=== PATIENT | male | born 1940 | race Caucasian/White ===

== ENCOUNTER 2018-01-25 17:44 | Observation (INO) | payer MEDICARE, BC ==
[~2018-01-25] VITALS: Ht 190.5 cm; Wt 106.6 kg
--- NOTE | ~2018-01-25 | HEMODYNAMI ---
PATIENT:MATY CARLOS MEDICAL RECORD: [id number] : 44 LOCATION:[address] ADMISSION DATE: 01/25/18 Generatedon:01/26/201815:13 Patient name: MATY CARLOS Patient #: [id number] SSN: DO B: 1940 Date of study: 01/26/2018 Page: Of Hemodynamic Procedure Report Patient Data Patient Demographics Procedure consent was obtained First Name: MATY Gender: Male Last Name: BREANNA : 1940 Middle Initial: T Age: 77 year(s) Patient #: [id number] Race: Unknown Additional ID: [id number] Contact details [address]: [address] [place] [address] State: [place] City: [place] Zip code: [address] Admission Admission Data Admission Date: 01/25/2018 Admission Time: 22:34 Room #: 2124 Procedure Procedure Types Cath Procedure Diagnostic Procedure LHC LHC w/Coronaries Sedation Charges Moderate Sedation up to 15 minutes Procedure Description Procedure Date Procedure Date: 01/26/2018 Procedure Start Time: 14:47 Procedure End Time: 15:09 Procedure Staff Name Function Elena Majano RT Scrub Steff Ceja RT Monitor Azeem Hi RN Nurse Tomasz Mendoza MD Performing Physician Procedure Data Cath Procedure Fluoroscopy Diagnostic fluoroscopy Total fluoroscopy Time: 5.3 time: 5.3 min min Diagnostic fluoroscopy Total fluoroscopy dose: dose: 1230 mGy 1230 mGy Contrast Material Contrast Material Type Amount (ml) Isovue 300 114 Entry Location Entry Primary Successful Side Size Upsize Upsize Entry Closure Cho ccessful Closure Location (Fr) 1 (Fr) 2 (Fr) Remarks Device Remarks Radial Right 6 Fr Mechanical tr BAND artery Short Compression Estimated blood loss: 10 ml Diagnostic catheters Device Type Used For End Catheter Placement DIAGNOSTIC Octaviano 110cm Procedure 5Fr catheter ([id number]) DIAGNOSTIC Octaviano 110cm Procedure 5Fr catheter (387692) DIAGNOSTIC [place] 110cm 5 Procedure Fr catheter (052141) Procedure Medications Medication Administration Route Dosage Oxygen etCO2 Nasal cannula 2 l/min Heparin Flush Bag added to field 2 bags (1000units/500ml NS) 0.9% NaCl I.V. 100 ml/hr Radial Cocktail added to field 1 syringe (Verapomil 2mg/Nitro 400mcg/Heparin 1500units) Fentanyl I.V. 50 mcg Versed I.V. 1 mg Fentanyl I.V. 50 mcg Versed I.V. 1 mg Radial Cocktail I.A. 1 syringe (Verapomil 2mg/Nitro 400mcg/Heparin 1500units) Heparin Bolus I.V. 19961 units Brilinta P.O. 180 mg Hemodynamics Rest Heart Rate: 64 (bpm) Pressure Samples Time Site Value (mmHg) Purpose Heart Use Rate(bpm) 14:48 AO 157/17(54) Snapshot 64 Gradients Valve Time Site Site Mean SEP/DFP Peak To Heart Use 1 2 (mmHg) (sec/min) Peak Rate (mmHg) (bpm) Other 14:49 AO 63 Snapshots Pre Cath Intra NCS Post Cath Vital Signs Time Heart Resp SPO2 etCO2 NIBP (mmHg) Rhythm Pain Sedation Rate (ipm) (%) (mmHg) Status Level (bpm) 14:37:01 62 17 99 35.9 170/98(127) NSR 0 (11) 10(A) , No pain 14:41:23 61 17 97 38.9 136/95(113) NSR 0 (11) 10(A) , No pain 14:45:39 64 17 91 38.4 152/73(98) NSR 0 (11) 9(A) , No pain 14:50:01 63 16 89 43.4 117/77(86) NSR 0 (11) 9(A) , No pain 14:54:11 68 16 93 38.7 133/69(117) NSR 0 (11) 9(A) , No pain 14:58:23 62 17 96 38.9 137/79(100) NSR 0 (11) 9(A) , No pain 15:02:41 61 17 97 43.4 130/66(111) NSR 0 (11) 9(A) , No pain 15:06:53 58 16 97 38.9 129/76(104) NSR 0 (11) 9(A) , No pain 15:08:41 62 15 97 38.9 125/74(100) NSR 0 (11) 9(A) , No pain Medications Time Medication Route Dose Verified Delivered Reason Not es Effectiveness by by 14:37:48 Oxygen etCO2 2 l/min Chad Azeem Per physician Nasal [facility] Hi RN cannula 14:37:56 Heparin Flush added 2 bags Chad Gann used for Bag to [facility] Mike Hi RN procedure (1000units/500ml field CANTU NS) 14:38:07 0.9% NaCl I.V. 100 Chad Azeem Per physician ml/hr [facility] Mike Hi RN, MD 14:38:15 Radial Cocktail added 1 Chad Azeem used for (Verapomil to syringe [facility] Hi RN procedure 2mg/Nitro field CANTU 400mcg/Heparin 1500units) 14:38:23 Fentanyl I.V. 50 mcg Chad Gann for sedation [facility] Mike Hi RN, MD 14:38:29 Versed I.V. 1 mg Chad Gann for sedation [facility] Mike Hi RN, MD 14:40:45 Fentanyl I.V. 50 mcg Chad Jeany for sedation [facility] Mike Hi RN, MD 14:40:49 Versed I.V. 1 mg Chad Gann for sedation [facility] Mike Hi RN, MD 14:49:13 Radial Cocktail I.A. 1 Tomasz Tomasz for (Verapomil syringe Reji Mendoza MD vasodilation 2mg/Nitro 400mcg/Heparin 1500units) 15:00:07 Heparin Bolus I.V. 22862 Tomasz Azeem for units Reji Hi RN anticoagulation 15:08:50 Brilinta P.O. 180 mg Tomasz Azeem for Reji Hi RN antiplatelet therapy Procedure Log Time Note 14:10:43 Elena Majano RT(R) sent for patient. Start room use. 14:24:08 Diagnostic Cath Status : Elective 14:24:44 Time tracking: Regular hours (M-F 7:00 - 5:00) 14:24:48 Plan of Care:Hemodynamics will remain stable., Cardiac rhythm will remain stable., Comfort level will be maintained., Respiratory function will remain adequate., Patient/ family verbilizes understanding of procedure., Procedure tolerated without complication., Recovers from procedure without complications.. 14:24:54 Patient received from Med II to [facility] 2 Alert and oriented. Tansferred to table in Supine position. 14:24:55 Warm blankets applied, and mian hugger turned on for patient comfort. 14:24:55 Correct patient and procedure confirmed by team. 14:24:57 Signed procedure consent form obtained from patient. 14:24:58 ECG and BP/O2 sat monitors applied to patient. 14:28:07 Rhythm: sinus rhythm 14:28:09 Full Disclosure recording started 14:28:26 H&P Date Dictated: 01/25/2018 Within 30 days and on chart., H&P Addendum completed by physician on day of procedure. (MUST COMPLETE FOR ALL OUTPATIENTS). 14:28:28 Pre-procedure instructions explained to patient. 14:28:29 Pre-op teaching completed and patient verbalized understanding. 14:28:52 Family in waiting room. 14:28:55 Patient NPO since Midnight. 14:29:06 Is the patient allergic to Iodine/contrast media? No. 14:29:09 Is patient on blood thinner?No 14:29:11 Patient diabetic? No. 14:29:24 Previous problem with sedation/anesthesia? No ? 14:29:27 Snore? Yes 14:29:28 Sleep apnea? No 14:29:29 Deviated septum? No 14:29:29 Opens mouth fully? Yes 14:29:30 Sticks out tongue? Yes 14:29:32 Airway obstruction? No ? 14:29:38 Dentures? Yes IN 14:29:45 Pre procedure: right dorsailis pedis pulse 1+ Palpable, but thready & weak; easily obliterated 14:29:47 Modified Chalo's test Ulnar < 7 seconds 14:29:50 Patient pain scale 0/10 ?. 14:29:56 IV patent on arrival in right hand with 0.9% NaCl at [facility]. 14:30:08 Lab results completed and on chart. 14:30:13 Right Radial & Right Groin area was prepped with chlora-prep and draped in sterile fashion 14:30:14 Alarms reviewed by R. N. 14:30:14 Sharps counted by scrub and verified by R.N. 14:33:26 Vital chart was started 14:35:55 Vital chart was stopped 14:35:56 Vital chart was started 14:37:44 Physician arrived 14:37:45 --------ALL STOP TIME OUT------ 14:37:46 Final Timeout: patient, procedure, and site verified with staff and physician. All members of the team are in agreement. 14:37:48 Oxygen 2 l/min etCO2 Nasal cannula was administered by Azeem Hi RN; Per physician; 14:37:48 Right Radial & Right Groin site verified by team. 14:37:52 Physical assessment completed. ASA score P 2 - A patient with mild systemic disease as per Chad Blank MD. 14:37:56 Heparin Flush Bag (1000units/500ml NS) 2 bags added to field was administered by Azeem Hi RN; used for procedure; 14:37:56 Sedation plan: IV Moderate Sedation Medication:Versed, Fentanyl 14:38:07 0.9% NaCl 100 ml/hr I.V. was administered by Azeem Hi RN; Per physician; 14:38:15 Radial Cocktail (Verapomil 2mg/Nitro 400mcg/Heparin 1500units) 1 syringe added to field was administered by Azeem Hi RN; used for procedure; 14:38:23 Fentanyl 50 mcg I.V. was administered by Azeem Hi RN; for sedation; 14:38:29 Versed 1 mg I.V. was administered by Azeem Hi RN; for sedation; 14:40:45 Fentanyl 50 mcg I.V. was administered by Azeem Hi RN; for sedation; 14:40:49 Versed 1 mg I.V. was administered by Azeem Hi RN; for sedation; 14:44:47 Zero performed for pressure channel P1 14:46:26 A DIAGNOSTIC Octaviano 110cm 5Fr catheter ([id number]) was advanced over the wire and used for Procedure. 14:46:32 Procedure started. 14:46:58 Zero performed for pressure channel P1 14:47:18 Local anesthetic to right radial artery with Lidocaine 2% by Tomasz Mendoza MD.INITIAL ACCESS ONLY 14:47:37 A 6 Fr Short sheath was inserted into the Right Radial artery 14:47:43 Zero performed for pressure channel P1 14:48:07 A DIAGNOSTIC Octaviano 110cm 5Fr catheter ([id number]) was advanced over the wire and used for Procedure. 14:48:42 EF : 40 % 14:48:46 LV hemodynamics recorded. 14:49:13 Radial Cocktail (Verapomil 2mg/Nitro 400mcg/Heparin 1500units) 1 syringe I.A. was administered by Tomasz Mendoza MD; for vasodilation; 14:49:47 RCA angiography performed. 14:50:44 Catheter removed. 14:51:15 A DIAGNOSTIC [place] 110cm 5 Fr catheter (815139) was advanced over the wire and used for Procedure. 14:51:24 LCA angiography performed. 14:54:17 Catheter removed. 14:54:29 Proceeding to intervention. 14:56:20 GUIDE 6FR AR 1.0 catheter ([id number]) opened to sterile field. 14:56:21 BMW 300cm [place] 2 J wire ([id number]) opened to sterile field. 14:56:23 INFLATOR Merit BasixCompak (AJ6741) opened to sterile field. 14:56:33 TUBING High Pressure Extension Tubing (Reji) ([id number]) opened to sterile field. 14:56:47 6 Fr AR 1 guide catheter was inserted over the wire 14:58:21 RCA 15:00:07 Heparin Bolus 80176 units I.V. was administered by Azeem Hi RN; for anticoagulation; 15:00:42 BMW wire advanced. 15:00:50 PDA 15:01:04 Wire advanced across lesion. 15:05:15 Place stent Inflation Number: 1 A INTEGRITY OTW 3.0 X 12 stent ([id number]) was prepped and advanced across the R PDA. The stent was deployed at 16 ALISSA for 0:24 (min:sec). 15:05:20 Wire removed. 15:05:22 Guide catheter removed. 15:06:00 Sheath removed intact; hemostasis achieved with Mechanical Compression to the Right Radial artery. 15:06:05 Procedure ended.(Physican Out) 15:06:16 Fluoroscopy time 05.30 minutes. 15:06:20 Fluoroscopy dose: 1230 mGy 15:06:20 Flurop Dose total: 1230 15:06:27 Contrast amount:Isovue 300 114ml. 15:06:35 TR band inflated with 12cc of air. 15:06:37 Insertion/operative site no bleeding no hematoma. 15:06:38 Post Procedure Pulses reassessed and unchanged 15:06:47 Post-procedure physical assessment completed. ASA score P 2 - A patient with mild systemic disease as per Tomasz Mendoza MD. 15:07:06 Post procedure rhythm: unchanged. 15:07:10 Estimated blood loss: 10 ml 15:07:13 Post procedure instruction explained to patient.Patient verbalizes understanding. 15:07:37 Procedure type changed to Cath procedure, Diagnostic procedure, LHC, LHC w/Coronaries, Sedation Charges, Moderate Sedation up to 15 minutes 15:07:58 Procedure and supply charges have been captured, reviewed, submitted and are correct. 15:08:41 Use device set Femoral Dx 15:08:42 ACIST Syringe (59226) opened to sterile field. 15:08:43 Bag Decanter (2002S) opened to sterile field. 15:08:47 Medline Cath Pack ([id number]) opened to sterile field. 15:08:48 DIAGNOSTIC WIRE .035 260cm J wire (574663) opened to sterile field. 15:08:50 Brilinta 180 mg P.O. was administered by Azeem Hi RN; for antiplatelet therapy; 15:08:50 ACIST Hand Control (26012) opened to sterile field. 15:08:50 ACIST Manifold (19318) opened to sterile field. 15:08:55 PERCUTANEOUS ENTRY 19GA needle opened to sterile field. 15:09:17 TR BAND Standard ([id number]) opened to sterile field. 15:09:31 Report given to Med II. 15:09:35 Patient transfered to Med II with Bed. 15:09:37 Procedure ended. 15:09:37 Full Disclosure recording stopped 15:09:41 End room use (Document Last) 15:12:26 End room use (Document Last) 15:13:05 Vital chart was stopped Intervention Summary Intervention Notes Time ActionType Lesion and Equipment Action# Pressure Duration Attributes Used 15:05:15 Place stent R PDA INTEGRITY 1 16 00:24 OTW 3.0 X 12 stent ([id number]) Device Usage Item Name Manufacture Quantity Catalog Hospital Part Current Minimal Lot# / Number Charge Number Stock Stock Serial# Code DIAGNOSTIC Terumo 2 40-6561 [id number] 578214 378126 5 Octaviano 110cm 5Fr catheter (064070) DIAGNOSTIC Terumo 1 40-7954 209804 383939 617038 5 [place] 110cm 5 Fr catheter (565028) GUIDE 6FR AR Medtronic 1 [id number] 507542 74844 078757 1 1.0 catheter ([id number]) BMW 300cm Acevedo 1 [id number] 453445 542108 887490 5 [place] 2 Vascular J wire ([id number]) INFLATOR Merit 1 [id number] 042770 340682 472651 15 Merit Medical BasixCompak (HJ0480) TUBING High Merit 1 [id number] 447269 20681 256894 10 Pressure Medical Extension Tubing (Mendoza) ([id number]) INTEGRITY Medtronic 1 [id number] 188137 573742 8 [id number] OTW 3.0 X 12 stent ([id number]) ACIST Acist 1 49626 674402 104258 632129 20 Syringe Medical (61025) Systems Inc Bag Decanter Microtek 1 2001S 769637 74420 078076 5 (2001S) Medical Inc. Medline Cath Cardinal 1 [id number] 893488 51354 221918 5 WeLink ([id number]) DIAGNOSTIC [facility] [place] 1 515492 663359 773729 242405 30 WIRE .035 260cm J wire (824004) ACIST Hand Acist 1 52140 820140 553056 416355 5 Control Medical (53524) Systems Inc ACIST Acist 1 49204 529035 622176 180857 5 Manifold Medical (28576) Systems Inc PERCUTANEOUS Cook Medical 1 K49115 017580 187752 5 ENTRY 19GA needle TR BAND Terumo 1 [id number] 943677 241424 046859 40 Standard ([id number]) Signature Audit [place] Stage Time Signature Unsigned Intra-Procedure 01/26/2018 Steff Ceja 3:13:01 PM RT(R) Signatures Monitor : Steff Ceja Signature : RT Date : Time : [facility] [address] [place] [address]
[~2018-01-25 17:44] MED LIST: ASPIRIN EC81 M1 PO; DIOVAN HCT 160/1 TAB PO; EFFIENT10 MG PO; FLUTICASONE PRO16 GM NS; NORVASC5 MG PO; PRAVACHOL40 MG PO; PRILOSEC20 MG PO
[2018-01-25 18:15] LABS: BASOPHILS 0.2 % (0-2); EOSINOPHILS 0.9 % (0-7); HEMATOCRIT 39.5 % (42.0-54.0); HEMOGLOBIN 13.1 g/dL (13.5-17.5); IMMATURE GRANULOCYTES 0.2 % (0-5); MCH 27.7 pg (26.0-34.0); MCHC 33.2 g/dL (31.0-37.0); MCV 83.5 fL (80.0-100.0); MEAN PLATELET VOLUME 10.1 fL (7.4-10.4); MONOCYTES 7.2 % (2-11); NEUTROPHILS 71.5 % (40-80); PLATELET COUNT 286 10x3/uL (130-400); RBC 4.73 10x6/uL (4.20-6.10); RDW 14.1 % (11.5-14.5); WBC 10.9 10x3/uL (4.8-10.8)
[2018-01-25 18:39] LABS: ALBUMIN 3.9 g/dL (3.4-5.0); ALKALINE PHOSPHATASE 91 U/L (46-116); ALT (SGPT) 28 U/L (10-68); BILIRUBIN - TOTAL 0.39 mg/dL (0.2-1.3); CALC OSMOLALITY 278 mosm/kg (275-300); CARBON DIOXIDE 28.2 mmol/L (21.0-32.0); CHLORIDE - SERUM 104 mmol/L (98-107); CREATININE - SERUM 1.1 mg/dL (0.6-1.3); GLUCOSE 113 mg/dL (74-106); POTASSIUM - SERUM 3.9 mmol/L (3.5-5.1); PROTEIN - SERUM 7.6 g/dL (6.4-8.2); SODIUM 138 mmol/L (136-145); UREA NITROGEN 17 mg/dL (7-18); eGFR NON AFRICAN AMERICAN 69 mL/min (90-120)
[2018-01-25 18:50] LABS: CHOL - HDL RATIO 3.2 ratio (2.3-4.9); CHOLESTEROL, TOTAL 139 mg/dL (0-200); CKMB 2.4 U/L (0.0-3.6); CREATINE KINASE 157 UL (21-232); HDL CHOLESTEROL 44 mg/dL (32-96); LDL CHOLESTEROL 87 mg/dL (0-100); TRIGLYCERIDE 43 mg/dL (30-200); TROPONIN-I 0.025 ng/mL (0.000-0.060)
[2018-01-25 19:03] LABS: INR 1.17 (0.85-1.17); PROTIME 14.5 SECONDS (11.6-15.0)
[2018-01-25 19:04] LABS: APTT 27.5 SECONDS (22.8-39.4)
[2018-01-25 19:05] LABS: D-DIMER-QUANTITATIVE 0.4 ug/mLFEU (0.20-0.54)
[2018-01-25 22:06] LABS: CKMB 1.8 U/L (0.0-3.6); CREATINE KINASE 138 UL (21-232); TROPONIN-I 0.032 ng/mL (0.000-0.060)
[2018-01-26 00:03] VITALS: BP 143/49; BMI 33.1
[2018-01-26 04:00] VITALS: BP 107/53
[2018-01-26 05:02] LABS: BASOPHILS 0.3 % (0-2); EOSINOPHILS 2.7 % (0-7); HEMATOCRIT 37.4 % (42.0-54.0); HEMOGLOBIN 12.2 g/dL (13.5-17.5); IMMATURE GRANULOCYTES 0.3 % (0-5); LYMPHOCYTES 28.7 % (15-50); MCH 27.5 pg (26.0-34.0); MCHC 32.6 g/dL (31.0-37.0); MCV 84.2 fL (80.0-100.0); MEAN PLATELET VOLUME 10.5 fL (7.4-10.4); MONOCYTES 10.2 % (2-11); NEUTROPHILS 57.8 % (40-80); PLATELET COUNT 262 10x3/uL (130-400); RBC 4.44 10x6/uL (4.20-6.10); RDW 14.3 % (11.5-14.5); WBC 7.8 10x3/uL (4.8-10.8)
[2018-01-26] MEDS ORDERED: PEPCID20 MG PO (05:13)
[2018-01-26] MEDS ORDERED: ZYRTEC10 MG PO (05:14)
[2018-01-26] MEDS ORDERED: PRAVACHOL20 MG PO (05:16)
[2018-01-26 05:41] LABS: ALBUMIN 3.4 g/dL (3.4-5.0); ALKALINE PHOSPHATASE 82 U/L (46-116); ALT (SGPT) 27 U/L (10-68); CALC OSMOLALITY 288 mosm/kg (275-300); CALCIUM 8.7 mg/dL (8.5-10.1); CARBON DIOXIDE 30.1 mmol/L (21.0-32.0); CHLORIDE - SERUM 108 mmol/L (98-107); CREATINE KINASE 117 UL (21-232); GLUCOSE 107 mg/dL (74-106); POTASSIUM - SERUM 3.9 mmol/L (3.5-5.1); PROTEIN - SERUM 6.7 g/dL (6.4-8.2); SODIUM 144 mmol/L (136-145); TROPONIN-I < 0.017 ng/mL (0.000-0.060); UREA NITROGEN 19 mg/dL (7-18); eGFR NON AFRICAN AMERICAN 77 mL/min (90-120)
[2018-01-26 08:35] VITALS: BP 142/80
[2018-01-26 10:33] LABS: CKMB 1.5 U/L (0.0-3.6); CREATINE KINASE 105 UL (21-232); TROPONIN-I 0.027 ng/mL (0.000-0.060)
[2018-01-26 11:35] VITALS: BP 145/69
[2018-01-26 12:27] VITALS: Ht 190.5 cm; Wt 106.6 kg
[2018-01-26] MEDS ORDERED: BRILINTA90 MG PO (16:17)
== END 2018-01-26 19:56 | disposition home or self-care (01) ==
LOC: D.ER 17:44 → D.M2 22:34 → OBSVTIME 22:34 → D.M2 22:34
PROVIDERS: Emergency Medicine; Family Medicine; Physician Assistant Medical
DX: I25.110 Atherosclerotic heart disease of native coronary artery with unstable angina pectoris (principal); E78.5 Hyperlipidemia, unspecified; I10 Essential (primary) hypertension; I44.7 Left bundle-branch block, unspecified; Q24.5 Malformation of coronary vessels

== ENCOUNTER 2019-05-16 10:03 | Observation (INO) | payer MEDICARE, BC ==
[~2019-05-16] VITALS: Ht 190.5 cm; Wt 104.5 kg
[2019-05-16] VITALS (9 sets, daily range): BP systolic 122–179; BP diastolic 62–81; Ht 190.5 cm; Wt 104.5 kg
--- NOTE | ~2019-05-16 | HEMODYNAMI ---
PATIENT:MATY CARLOS MEDICAL RECORD: [id number] : 44 [address] [place] CLINICT# [id number] ADMISSION DATE: 05/16/19 Generatedon:05/17/201914:23 Patient name: MATY CARLOS Patient #: [id number] SSN: [id number] : 1940 Date of study: 05/17/2019 Page: Of Hemodynamic Procedure Report Patient Data Patient Demographics Procedure consent was obtained First Name: MATY Gender: Male Last Name: BREANNA : 1940 Middle Initial: T Age: 78 year(s) Patient #: [id number] Race: SSN: [id number] Additional ID: [id number] Contact details Address: [address] [place] [address] State: [place] City: [place] Zip code: [address] Past Medical History Allergies Allergen Reaction Date Comments Reported Other allergy 05/17/2019 EFFIENT, PLAVIX Admission Admission Data Admission Date: 05/16/2019 Admission Time: 12:19 Room #: D.2125 Insurance Payor: Medicare [facility] #: [id number] Height (in.): 73 BSA: 2.32 (m2) Height (cm.): 185.42 BMI: 31.4 (kg/m2) Weight (lbs.): 238 Weight (kg.): 107.95 Lab Results Lab Result Date: 05/17/2019 Lab Result Time: 0:00 Biochemistry Name Units Result Min Max BUN mg/dl 18 --(---*)-- 7 18 Creatinine mg/dl 1.1 --(--*-)-- 0.6 1.3 eGFR ml/min 69 *-(----)-- 90 120 NONAFRICAN CBC Name Units Result Min Max Hematocrit % 32.2 *-(----)-- 42 54 Hemoglobin g/dl 10.3 *-(----)-- 13.5 17.5 Procedure Procedure Types Cath Procedure Diagnostic Procedure LHC C w/Coronaries Procedure Description Procedure Date Procedure Date: 05/17/2019 Procedure Start Time: 14:03 Procedure Staff Name Function Tomasz Mendoza MD Performing Physician Allyson Jewell RT Scrub Yonas Juarez RN Nurse Zev Root RT Monitor Tila Parekh RN Housekeeping Staff Indication CAD Angina Procedure Data Cath Procedure Fluoroscopy Diagnostic fluoroscopy Total fluoroscopy Time: 4 time: 4 min min Diagnostic fluoroscopy Total fluoroscopy dose: 748 dose: 748 mGy mGy Contrast Material Contrast Material Type Amount (ml) Isovue 300 73 Entry Location Entry Primary Successful Side Size Upsize Upsize Entry Closure Cho ccessful Closure Location (Fr) 1 (Fr) 2 (Fr) Remarks Device Remarks Radial Right 6 Fr Mechanical artery Short Compression Estimated blood loss: 10 ml Diagnostic catheters Device Type Used For End Catheter Placement DIAGNOSTIC Octaviano 110cm Procedure 5Fr catheter ([id number]) DIAGNOSTIC [place] 110cm 5 Procedure Fr catheter ([id number]) Procedure Medications Medication Administration Route Dosage 0.9% NaCl I.V. 100 ml/hr Oxygen etCO2 Nasal cannula 2 l/min Heparin Flush Bag added to field 2 bags (1000units/500ml NS) Lidocaine 2% added to field 20 Radial Cocktail added to field 1 syringe (Verapamil 2mg/Nitro 400mcg/Heparin 1500units) Versed I.V. 2 mg Fentanyl I.V. 100 mcg Versed I.V. 1 mg Radial Cocktail I.A. 1 syringe (Verapamil 2mg/Nitro 400mcg/Heparin 1500units) Versed I.V. 1 mg Hemodynamics Rest BSA: 2.32 (m2) HGB: 10.3 (g/dl) O2 Consumption: Estimated: 261.24 (ml/min) O2 Co nsumption indexed: Estimated:112.6 (ml/min/m) Heart Rate: 64 (bpm) Pressure Samples Time Site Value (mmHg) Purpose Heart Use Rate(bpm) 14:08 LV 123/3,10 Snapshot 66 14:08 LV 99/8,10 EDP 64 Gradients Valve Time Site Site Mean SEP/DFP Peak To Heart Use 1 2 (mmHg) (sec/min) Peak Rate (mmHg) (bpm) Aortic 14:09 LV AO 60 Snapshots Pre Cath Intra NCS Post Cath Vital Signs Time Heart Resp SPO2 etCO2 NIBP (mmHg) Rhythm Pain Sedation Rate (ipm) (%) (mmHg) Status Level (bpm) 13:47:11 61 16 98 0 149/75(107) NSR 0 (11) 10(A) , No pain 13:51:29 56 28 96 41.1 133/68(101) NSR 0 (11) 10(A) , No pain 13:55:49 63 19 93 41.8 125/65(94) NSR 0 (11) 10(A) , No pain 14:00:03 59 18 95 0 134/71(110) NSR 0 (11) 10(A) , No pain 14:04:15 60 19 92 0 129/70(84) NSR 0 (11) 10(A) , No pain 14:08:33 59 13 95 39.6 107/65(95) NSR 0 (11) 10(A) , No pain 14:12:40 69 13 96 32.8 101/69(81) NSR 0 (11) 10(A) , No pain 14:17:38 67 12 94 41.8 118/60(93) NSR 0 (11) 10(A) , No pain 14:21:56 60 14 95 40.3 121/54(82) NSR 0 (11) 10(A) , No pain Medications Time Medication Route Dose Verified Delivered Reason Notes Effectiveness by by 13:52:08 0.9% NaCl I.V. 100 Yonas Yonas Per ml/hr Ann Juarez physician RN RN 13:52:16 Oxygen etCO2 2 l/min Yonas Yonas for low 02 Nasal Lorigan Opaligan sats cannula RN RN 13:52:27 Heparin Flush added 2 bags Yonas Yonas used for Bag to Lorigan Lornery procedure (1000units/500ml [facility] RN RN NS) 13:52:36 Lidocaine 2% added 20ml Yonas Yonas for local to vial Lorigan Lorigan anesthetic field RN RN 13:52:50 Radial Cocktail added 1 Yonas Yonas used for (Verapamil to syringe Lorigan Lorigan procedure 2mg/Nitro field RN RN 400mcg/Heparin 1500units) 14:00:17 Versed I.V. 2 mg Yonas Yonas for sedation Ann Juarez RN RN 14:00:26 Fentanyl I.V. 100 mcg Yonas Yonas for sedation Ann Juarez RN RN 14:04:17 Versed I.V. 1 mg Yonas Yonas for sedation Ann Juarez RN RN 14:06:27 Radial Cocktail I.A. 1 Yonas Tomasz for (Verapamil syringe Ann Mendoza MD vasodilation 2mg/Nitro RN 400mcg/Heparin 1500units) 14:14:16 Versed I.V. 1 mg Tomasz Buffie for sedation Reji Parekh electronic scale tester Log Time Note 13:34:12 Procedure Status Urgent Heart Cath (IP). 13:34:13 Time tracking: Regular hours (M-F 7:00 - 5:00) 13:34:17 Plan of Care:Hemodynamics will remain stable., Cardiac rhythm will remain stable., Comfort level will be maintained., Respiratory function will remain adequate., Patient/ family verbilizes understanding of procedure., Procedure tolerated without complication., Recovers from procedure without complications.. 13:34:20 Yonas Juarez RN sent for patient. Start room use. 13:34:22 Signed procedure consent form obtained from patient. 13:34:38 Patient allergic to Other allergyEFFIENT, PLAVIX 13:36:43 Insurance Payor : Medicare 13:36:52 Patient Weight : 238 lbs 13:37:05 Patient Height : 73 inches 13:38:07 Lab Result : eGFR NONAFRICAN 69 ml/min 13:38:07 Lab Result : Hemoglobin 10.3 g/dl 13:38:07 Lab Result : BUN 18 mg/dl 13:38:07 Lab Result : Creatinine 1.1 mg/dl 13:38:07 Lab Result : Hematocrit 32.2 % 13:38:13 Diagnostic Cath Status : Urgent 13:38:14 PCI Cath Status : Urgent 13:38:20 Indication : CAD 13:38:23 Indication : Angina 13:40:58 Patient received from Med II to CCL 1 Alert and oriented. Tansferred to table in Supine position. 13:41:00 Warm blankets applied, and mian hugger turned on for patient comfort. 13:41:00 ECG and BP/O2 sat monitors applied to patient. 13:41:01 Correct patient and procedure confirmed by team. 13:45:55 Vital chart was started 13:46:32 Baseline sample Acquired. 13:46:39 Rhythm: sinus rhythm 13:46:40 Full Disclosure recording started 13:46:49 H&P Date Dictated: 05/16/2019 Within 30 days and on chart.. 13:46:49 Pre-procedure instructions explained to patient. 13:46:50 Pre-op teaching completed and patient verbalized understanding. 13:46:51 Family in patients room. 13:46:52 Patient NPO since Midnight. 13:46:54 Is patient on blood thinner?No 13:47:25 Patient diabetic? No. 13:47:39 Previous problem with sedation/anesthesia? No ? 13:47:40 Snore? Yes 13:47:41 Sleep apnea? No 13:47:42 Deviated septum? No 13:47:43 Opens mouth fully? Yes 13:47:43 Sticks out tongue? Yes 13:47:45 Airway obstruction? No ? 13:47:50 Dentures? Yes PARTIAL IN 13:47:54 Modified Chalo's test Ulnar < 7 seconds 13:47:55 Patient pain scale 0/10 ?. 13:48:04 IV patent on arrival in left forearm with 0.9% NaCl at [facility]. 13:48:06 Lab results completed and on chart. 13:48:08 Right Radial & Right Groin area was prepped with chlora-prep and draped in sterile fashion 13:48:09 Alarms reviewed by R. N. 13:48:09 Sharps counted by scrub and verified by R.N. 13:48:13 Use device set Radial Dx or PCI 13:48:14 ACIST Syringe (00598) opened to sterile field. 13:48:15 Medline Cath Pack ([id number]) opened to sterile field. 13:48:16 Bag Decanter (2002) opened to sterile field. 13:48:16 ACIST Hand Control (94519) opened to sterile field. 13:48:17 ACIST Manifold (58078) opened to sterile field. 13:48:18 Tegaderm 4 x 4 (1626W) opened to sterile field. 13:48:19 MBrace Wrist Support (584293481) opened to sterile field. 13:48:19 NEEDLE Cook 21G 4cm Radial (C22230) opened to sterile field. 13:48:23 EMERALD Guide Wire (085-969) opened to sterile field. 13:48:24 SHEATH 6FR RAIN (2648146) opened to sterile field. 13:52:08 0.9% NaCl 100 ml/hr I.V. was administered by Yonas Juarez RN; Per physician; 13:52:16 Oxygen 2 l/min etCO2 Nasal cannula was administered by Yonas Juarez RN; for low 02 sats; 13:52:27 Heparin Flush Bag (1000units/500ml NS) 2 bags added to field was administered by Yonas Juarez RN; used for procedure; 13:52:36 Lidocaine 2% 20ml vial added to field was administered by Yonas Juarez RN; for local anesthetic; 13:52:50 Radial Cocktail (Verapamil 2mg/Nitro 400mcg/Heparin 1500units) 1 syringe added to field was administered by Yonas Juarez RN; used for procedure; 13:58:51 Physician arrived 13:58:52 --------ALL STOP TIME OUT------ 13:58:53 Final Timeout: patient, procedure, and site verified with staff and physician. All members of the team are in agreement. 13:58:56 Right Radial & Left Groin site verified by team. 13:59:01 Fire Safety Assessment: A--An alcohol-based skin anteseptic being used preoperatively., C--Open oxygen or nitrous oxide is being used., D--An ESU, laser, or fiber-optic light is being used. 13:59:09 Physical assessment completed. ASA score P 2 - A patient with mild systemic disease as per Tomasz Mendoza MD. 13:59:37 2) 60-89 Mildly reduced kidney function, and other findings (as for stage 1) point to kidney disease. 14:00:10 Maximum allowable contrast dose (3.7 X eGFR X 0.75)191 ml. 14:00:15 Sedation plan: IV Moderate Sedation Medication:Versed, Fentanyl 14:00:17 Versed 2 mg I.V. was administered by Yonas Juarez RN; for sedation; 14:00:26 Fentanyl 100 mcg I.V. was administered by Yonas Juarez RN; for sedation; 14:03:26 Procedure started. 14:03:33 Local anesthetic to right radial artery with Lidocaine 2% by Tomasz Mendoza MD.INITIAL ACCESS ONLY 14:04:17 Versed 1 mg I.V. was administered by Yonas Juarez RN; for sedation; 14:05:42 A 6 Fr Short sheath was inserted into the Right Radial artery 14:06:07 A DIAGNOSTIC Octaviano 110cm 5Fr catheter (323314) was advanced over the wire and used for Procedure. 14:06:27 Radial Cocktail (Verapamil 2mg/Nitro 400mcg/Heparin 1500units) 1 syringe I.A. was administered by Tomasz Mendoza MD; for vasodilation; 14:08:34 LV hemodynamics recorded. 14:08:36 LV gram done using ESCOBAR 14:08:46 EF : 35 % 14:09:49 RCA angiography performed. 14:09:58 ACCDominant side:Right 14:11:00 Catheter removed. 14:11:08 A DIAGNOSTIC [place] 110cm 5 Fr catheter (262053) was advanced over the wire and used for Procedure. 14:14:16 Versed 1 mg I.V. was administered by Tila Parekh RN; for sedation; 14:16:03 LCA angiography performed. 14:16:41 Catheter removed. 14:17:17 TR BAND Standard ([id number]) opened to sterile field. 14:17:33 Sheath removed intact; hemostasis achieved with Mechanical Compression to the Right Radial artery. 14:17:36 Procedure ended.(Physican Out) 14:18:01 Fluoroscopy time 04.00 minutes. 14:18:07 Flurop Dose total: 748 14:18:07 Fluoroscopy dose: 748 mGy 14:18:16 Dose Area Product 61348 mGy/cm. 14:18:28 Contrast amount:Isovue 300 73ml. 14:18:32 Maximum allowable dose exceeded? No. 14:18:50 Sharps counted by scrub and verified by R.N. 14:19:21 Post-procedure physical assessment completed. ASA score P 2 - A patient with mild systemic disease as per Tomasz Mendoza MD. 14:19:31 Post procedure rhythm: sinus rhythm 14:19:45 Estimated blood loss: 10 ml 14:19:47 Patient needs reinforcement of post procedure teaching. 14:19:49 Procedure and supply charges have been captured, reviewed, submitted and are correct. 14:22:12 TR band inflated with 8cc of air. 14:22:20 Post right radial artery:stable 14:23:10 Vital chart was stopped Device Usage Item Name Manufacture Quantity Catalog Hospital Part Current Minima l Lot# / Number Charge Number Stock Stock Serial# Code [facility] 1 62402 166158 423758 919900 20 Syringe Medical (94842) Systems Inc Medline Medline 1 [id number] 007056 89324 621003 5 Cath Pack ([id number]) Bag Microtek 1 2001S 719440 01565 917169 5 Decanter Medical Inc. () ACIST Hand Acist 1 37307 193981 114741 533913 5 Control Medical (67365) Systems Inc ACIST Acist 1 88982 646941 605424 838716 5 Manifold Medical (21959) Systems Inc Tegaderm 4 3M 1 1626W 763588 539069 562760 5 x 4 (1626W) MBrace Advanced 1 140-0250-00 508747 87015 501709 5 Wrist Vascular Support Dynamics ([id number]) NEEDLE Cook Cook Medical 1 N84578 451045 559947 918838 5 21G 4cm Radial (L81525) EMERALD Cardinal 1 775-172 503292 887642 928501 5 Guide Wire Health (604-939) SHEATH 6FR Cardinal 1 1133036 420877 5581271 983771 5 [facility] (5564215) DIAGNOSTIC Terumo 1 40-5023 028285 965671 090206 5 Octaviano 110cm 5Fr catheter (265471) DIAGNOSTIC Terumo 1 40-5013 785454 968608 213266 5 [place] 110cm 5 Fr catheter (420622) TR BAND Terumo 1 MTR50-ETO 685640 942195 679524 40 Standard ([id number]) Signature Audit [place] Stage Time Signature Unsigned Intra-Procedure 05/17/2019 Zev Root 2:23:07 PM RT(R) (CV) Signatures Performing Physician : Signature : Tomasz Mendoza MD Date : Time : Nurse : Yonas Juarez Signature : RN Date : Time : Monitor : Zev Root RT Signature : Date : Time : [address] [place] [address]
[~2019-05-16 10:03] MED LIST changes: +BRILINTA90 MG PO; +PEPCID20 MG PO; +PRAVACHOL20 MG PO; +ZYRTEC10 MG PO
--- NOTE | 2019-05-16 10:37 | NUR ---
PT STATES CHEST DISCOMFORT 1/10 PRIOR TO FIRST SL NITRO.
--- NOTE | 2019-05-16 10:52 | NUR ---
PT STATES NO CHANGE FOLLOWING FIRST ADMINISTERED SL PRN NITRO.
[2019-05-16 10:53] LABS: BASOPHILS 0.1 % (0-2); EOSINOPHILS 1.4 % (0-7); HEMATOCRIT 33.9 % (42.0-54.0); IMMATURE GRANULOCYTES 0.1 % (0-5); LYMPHOCYTES 14.4 % (15-50); MCH 24.2 pg (26.0-34.0); MCHC 32.4 g/dL (31.0-37.0); MCV 74.7 fL (80.0-100.0); MEAN PLATELET VOLUME 9.5 fL (7.4-10.4); MONOCYTES 7.7 % (2-11); NEUTROPHILS 76.3 % (40-80); RBC 4.54 10x6/uL (4.20-6.10); RDW 16.9 % (11.5-14.5); WBC 7.8 10x3/uL (4.8-10.8)
[2019-05-16 10:55] LABS: PLATELET COUNT 342 10x3/uL (130-400)
[2019-05-16 11:04] LABS: INR 1.17 (0.85-1.17); PROTIME 14.4 SECONDS (11.6-15.0)
[2019-05-16 11:05] LABS: ALBUMIN 3.7 g/dL (3.4-5.0); ALKALINE PHOSPHATASE 97 U/L (46-116); ALT (SGPT) 24 U/L (10-68); BILIRUBIN - TOTAL 0.57 mg/dL (0.2-1.3); CALC OSMOLALITY 282 mosm/kg (275-300); CALCIUM 9.4 mg/dL (8.5-10.1); CARBON DIOXIDE 26.4 mmol/L (21.0-32.0); CHLORIDE - SERUM 104 mmol/L (98-107); CREATININE - SERUM 0.9 mg/dL (0.6-1.3); GLUCOSE 134 mg/dL (74-106); POTASSIUM - SERUM 3.5 mmol/L (3.5-5.1); PROTEIN - SERUM 7.2 g/dL (6.4-8.2); SODIUM 140 mmol/L (136-145); UREA NITROGEN 17 mg/dL (7-18); eGFR NON AFRICAN AMERICAN 87 mL/min (90-120)
[2019-05-16 11:15] LABS: CKMB 1.2 U/L (0.0-3.6); CREATINE KINASE 59 UL (21-232); MAGNESIUM - SERUM 1.9 mg/dL (1.8-2.4); TROPONIN-I 0.019 ng/mL (0.000-0.060)
--- NOTE | 2019-05-16 11:24 | NUR ---
PT SITTING UPRIGHT IN BED, RESPIRATIONS EVEN AND UNLABORED. PT STATES PAIN IS "MINOR" AND CONTINUES TO RATE CHEST DISCOMFORT 1/10. CALL LIGHT IN REACH, WILL CONTINUE TO MMONITOR.
--- NOTE | 2019-05-16 13:17 | NUR ---
RECIVED FROM ER PER WC TO ROOM 2125. WITHOUT C/O PAIN AT THIS TIME. ADMIT ASSESSMENT PER RN.
[2019-05-16 15:19] LABS: % SATURATION 7 % (15-55); IRON 29 ug/dl (35-150); TOTAL IRON BIND CAPACITY 395 ug/dl (260-445); UNSAT IRON BIND CAPACITY 366 ug/dl (150-375)
[2019-05-16 15:58] LABS: APPEARANCE CLEAR (CLEAR); BILIRUBIN NEGATIVE (NEGATIVE); COLOR YELLOW (YELLOW); GLUCOSE NEGATIVE (NEGATIVE); KETONE NEGATIVE (NEGATIVE); NITRITE NEGATIVE (NEGATIVE); PROTEIN NEGATIVE (NEGATIVE); UROBILINOGEN NORMAL (NORMAL)
--- NOTE | 2019-05-16 17:06 | NUR ---
WITHOUT CHANGES NOT AT THIS TIME.
--- NOTE | 2019-05-16 20:00 | NUR ---
REPORT RECIEVED AND ROUNDING COMPLETE. PALYING SITTING IN BED, PATIENT STATES HE HAS NO NEEDS AT THIS TIME. PATIENT HAS LEFT WRIST THAT IS SALINE LOCKED. PATIENT STATES HE ISNT HAVING ANY PAIN AT THIS TIME. CALL LIGHT WITHIN REACH AND BED IN LOWEST LOCKED POSITION.
[2019-05-17 00:02] VITALS: BP 138/60
[2019-05-17 04:08] VITALS: BP 149/63
--- NOTE | 2019-05-17 04:15 | NUR ---
I have reviewed this patient and I concur with the Shift Assessment completed by the Licensed Practical Nurse today this shift.
[2019-05-17 05:37] LABS: ANION GAP 11.8 mmol/L (8-16); CALCIUM 8.6 mg/dL (8.5-10.1); CARBON DIOXIDE 30.6 mmol/L (21.0-32.0); CREATININE - SERUM 1.1 mg/dL (0.6-1.3); POTASSIUM - SERUM 4.4 mmol/L (3.5-5.1)
--- NOTE | 2019-05-17 06:50 | NUR ---
ASSESSMENT DONE. DENIES NEEDS
[2019-05-17 07:40] LABS: BASOPHILS 0.1 % (0-2); EOSINOPHILS 3.4 % (0-7); HEMATOCRIT 32.2 % (42.0-54.0); HEMOGLOBIN 10.3 g/dL (13.5-17.5); IMMATURE GRANULOCYTES 0.1 % (0-5); LYMPHOCYTES 26.3 % (15-50); MCH 24.1 pg (26.0-34.0); MCV 75.2 fL (80.0-100.0); MEAN PLATELET VOLUME 10.1 fL (7.4-10.4); MONOCYTES 7.9 % (2-11); NEUTROPHILS 62.2 % (40-80); PLATELET COUNT 316 10x3/uL (130-400); RBC 4.28 10x6/uL (4.20-6.10); RDW 16.9 % (11.5-14.5); WBC 7.5 10x3/uL (4.8-10.8)
[2019-05-17 07:55] VITALS: BP 150/73
[2019-05-17 12:25] VITALS: BP 144/72
--- NOTE | 2019-05-17 13:15 | NUR ---
TO DEMO SPECIALIST PER BED
--- NOTE | 2019-05-17 14:35 | NUR ---
ARRIVE BACK TO ROOM VIA BED FROM PACKING CLERK. ALERT AND ORIENTED X4. BP-120/67, HR-54 S[place], O2-96% RA. RT WRIST TR BAND INTACT. SCANT BLEEDING ON 2X2 UNDER TR BAND MARKED FOR MONITORING. FREE FROM HEMATOMA. CONTINUE PLAN OF CARE AND SAFETY PRECAUTIONS.
--- NOTE | 2019-05-17 14:36 | NUR ---
I have reviewed this patient and I concur with the Shift Assessment completed by the Licensed Practical Nurse today this shift.
--- NOTE | 2019-05-17 14:40 | NUR ---
RETURN FROM VICE PRESIDENT OF INSTRUCTION PER BED. TR-BAND TO RT WRIST. NO BLEEDING OR HEMITOMA NOTED
[2019-05-17 14:46] VITALS: BP 120/67
--- NOTE | 2019-05-17 16:49 | NUR ---
DC GIVEN TO PT
--- NOTE | 2019-05-17 17:00 | NUR ---
DC HOME PER PERSONAL CAR
--- NOTE | 2019-05-18 07:23 | MORECARE ---
CASE MANAGEMENT DISCHARGE SUMMARY PATIENT: MATY CARLOS UNIT: [id number] ADM DATE: 05/16/19 AGE: 78 : 42 SEX: M ROOM/BED: D.1803 AUTHOR: EVITA KEEN PHYSICIAN: REFERRING PHYSICIAN: LUIS AUGUSTIN MD DATE OF SERVICE: 05/18/19 Discharge Plan Patient Name: MATY CARLOS [facility] [facility] 1940 Planned Disposition: Home Anticipated Discharge Date: 05/17/19 Discharge Date: 05/17/2019 Expected LOS: 1 Initial Reviewer: [email or web address] Initial Review Date: 05/18/2019 Generated: 05/18/19 8:10 am Patient Name: MATY CARLOS Page 45816 at 0723 All edits/amendments must be made on the electronic document DICTATION DATE: 05/18/19709 STRIPPER OPAQUER: KAVIN 05/18/1910 RPT#: [id number] DC DATE:05/17/19 STATUS: DIS IN [facility] [address] [place] [address] END OF REPORT
--- NOTE | 2019-05-18 07:23 | MORECARE ---
CASE MANAGEMENT DISCHARGE SUMMARY PATIENT: MATY CARLOS UNIT: [id number] ADM DATE: 05/16/19 AGE: 78 : 42 SEX: M ROOM/BED: D.6534 AUTHOR: EVITA KEEN PHYSICIAN: REFERRING PHYSICIAN: LUIS AUGUSTIN MD DATE OF SERVICE: 05/18/19 Discharge Plan Patient Name: [facility]Y CARLOS [facility] [facility] 1940 Planned Disposition: Home Anticipated Discharge Date: 05/17/19 Discharge Date: 05/17/2019 Expected LOS: 1 Initial Reviewer: [email or web address] Initial Review Date: 05/18/2019 Generated: 05/18/19 8:16 am Patient Name: MATY CARLOS Page 15444 at 0723 All edits/amendments must be made on the electronic document DICTATION DATE: 05/18/19715 MICROBIOLOGY QUALITY CONTROL TECHNICIAN: KAVIN 05/18/19715 RPT#: [id number] DC DATE:05/17/19 STATUS: DIS IN [facility] [address] [place] [address] END OF REPORT
== END 2019-05-17 17:00 | disposition home or self-care (01) ==
LOC: D.ER 10:03 → D.M2 12:19 → OBSVTIME 12:20 → D.M2 05-17 17:00
PROVIDERS: Family Medicine; ADMIT Internal Medicine Nephrology; ATTEND Internal Medicine Nephrology
DX: I25.110 Atherosclerotic heart disease of native coronary artery with unstable angina pectoris (principal); I44.7 Left bundle-branch block, unspecified; I10 Essential (primary) hypertension; E78.5 Hyperlipidemia, unspecified; K21.9 Gastro-esophageal reflux disease without esophagitis; D50.9 Iron deficiency anemia, unspecified

== ENCOUNTER 2019-08-17 09:53 | Outpatient (CLI) | payer MEDICARE, BC ==
[~2019-08-17] VITALS: Ht 190.5 cm; Wt 106.8 kg
--- NOTE | ~2019-08-17 | HEMODYNAMI ---
PATIENT:MATY CARLOS MEDICAL RECORD: [id number] : 44 LOCATION:[facility] ADMISSION DATE: 08/17/19 Generatedon:08/17/201911:54 Patient name: MATY CARLOS Patient #: [id number] SSN: [id number] : 1940 Date of study: 08/17/2019 Page: Of Hemodynamic Procedure Report Patient Data Patient Demographics Procedure consent was obtained First Name: MATY Gender: Male Last Name: BREANNA : 1940 Middle Initial: T Age: 78 year(s) Patient #: [id number] Race: SSN: [id number] Additional ID: [id number] Contact details Address: [address] [place] [address] State: [place] City: [place] Zip code: [address] Past Medical History Allergies Allergen Reaction Date Comments Reported Other allergy 05/17/2019 EFFIENT, PLAVIX Other allergy 08/17/2019 EFFIENT, PLAVIX Admission Admission Data Admission Date: 08/17/2019 Admission Time: 9:53 Lab Results Lab Result Date: 08/17/2019 Lab Result Time: 0:00 Biochemistry Name Units Result Min Max BUN mg/dl 21 --(----)-* 7 18 Creatinine mg/dl 0.9 --(-*--)-- 0.6 1.3 CBC Name Units Result Min Max Hematocrit % 34.6 *-(----)-- 42 54 Hemoglobin g/dl 10.5 *-(----)-- 13.5 17.5 WBC 10^3/l 7.6 --(-*--)-- 4.8 10.8 Coagulation Name Units Result Min Max INR units 1.51 --(----)-* 0.85 1.17 PT sec 17.6 --(----)-* 11.6 15 Procedure Procedure Types Cath Procedure Diagnostic Procedure Cardioversion External Procedure Description Procedure Date Procedure Date: 08/17/2019 Procedure Start Time: 11:39 Procedure End Time: 11:49 Procedure Staff Name Function Azeem Hi RN Nurse Tila Parekh RN Nurse Evangelista Bhatia MD Additional personnel Luis E Luis MD Performing Physician Constanza Upton RT Monitor Procedure Data Procedure Complications No complications Procedure Medications Medication Administration Route Dosage Oxygen NC 6 l/min Refer to Anesthesia Notes for Sedation Medications Hemodynamics Rest HGB: 10.5 (g/dl) Heart Rate: 61 (bpm) Snapshots Pre Cath Intra NCS Post Cath Vital Signs Time Heart Resp SPO2 etCO2 NIBP (mmHg) Rhythm Pain Sedation Rate (ipm) (%) (mmHg) Status Level (bpm) 11:28:06 71 25 0 136/81(106) NSR (Missing) 10(A) 11:32:20 65 16 100 0 126/85(99) NSR (Missing) 10(A) 11:36:25 65 23 100 0 132/92(114) NSR (Missing) 10(A) 11:40:33 72 10 70 0 101/61(74) NSR (Missing) 10(A) 11:44:37 63 10 98 0 114/70(100) NSR (Missing) 10(A) 11:50:15 51 28 98 0 102/60(89) NSR (Missing) 10(A) Medications Time Medication Route Dose Verified Delivered Reason Notes Effectiven ess by by 11:36:24 Oxygen NC 6 Luis E Gann Per l/min Janelle Hi RN physician 11:36:31 Refer to Luis E Gann Per Anesthesia Janelle Hi RN physician Notes for Sedation Medications Procedure Log Time Note 11:13:55 Informed consent obtained and on chart 11:14:23 Time tracking: Regular hours (M-F 7:00 - 5:00) 11:14:23 Procedure Status Elective Heart Cath (OP). 11:14:26 Plan of Care:Hemodynamics will remain stable., Cardiac rhythm will remain stable., Comfort level will be maintained., Respiratory function will remain adequate., Patient/ family verbilizes understanding of procedure., Procedure tolerated without complication., Recovers from procedure without complications.. 11:14:28 Emmett Cisneros RT(R) sent for patient. Start room use. 11:14:36 H&P Date Dictated: 08/16/2019 Within 30 days and on chart., H&P Addendum completed by physician on day of procedure. (MUST COMPLETE FOR ALL OUTPATIENTS). 11:14:49 Patient allergic to Other allergyEFFIENT, PLAVIX 11:18:52 Patient arrived from Pre/Post Procedure Room to CCL 3. Patient remains on bed/stretcher for procedure. 11:18:53 Correct patient and procedure confirmed by team. 11:18:53 Warm blankets applied, and mian hugger turned on for patient comfort. 11:19:21 ECG and BP/O2 sat monitors applied to patient. 11:19:23 Pre-procedure instructions explained to patient. 11:19:24 Pre-op teaching completed and patient verbalized understanding. 11:19:25 Family in patients room. 11:19:26 Patient NPO since Midnight. 11:19:28 Is patient on blood thinner?Yes 11::31 ACC The patient was administered the following blood thiners within the last 24 hours: Eliquis 11:27:00 Vital chart was started 11:27:01 Baseline sample Acquired. 11:27:14 Rhythm: atrial fibrillation 11:27:16 Full Disclosure recording started 11:27:50 Patient diabetic? No. 11:27:51 ----Pre-sedation anethsthesia assessment.---- 11:27:54 Previous problem with sedation/anesthesia? No ? 11:27:56 Snore? Yes 11:27:57 Sleep apnea? No 11:27:59 Deviated septum? No 11:28:00 Opens mouth fully? Yes 11:28:02 Sticks out tongue? Yes 11:28:04 Airway obstruction? No ? 11:28:09 Dentures? Yes IN TIGHT 11:28:14 Patient pain scale 0/10 ?. 11:28:24 IV patent on arrival in left antecubital with 0.9% NaCl at [facility]. 11:34:09 Lab Result : Hematocrit 34.6 % 11:34:09 Lab Result : PT 17.6 sec 11:34:09 Lab Result : INR 1.51 units 11:34:09 Lab Result : WBC 7.6 10^3/l 11:34:09 Lab Result : BUN 21 mg/dl 11:34:09 Lab Result : Creatinine 0.9 mg/dl 11:34:09 Lab Result : Hemoglobin 10.5 g/dl 11:34:13 Lab results completed and on chart. 11:34:23 Alarms reviewed by R. N. 11:34:24 Sharps counted by scrub and verified by R.N. 11:34:27 Physician arrived 11:34:43 Final Timeout: patient, procedure, and site verified with staff and physician. All members of the team are in agreement. 11:34:43 --------ALL STOP TIME OUT------ 11:34:48 Mid Chest site verified by team. 11:34:52 Fire Safety Assessment: A--An alcohol-based skin anteseptic being used preoperatively., C--Open oxygen or nitrous oxide is being used., D--An ESU, laser, or fiber-optic light is being used. 11:34:56 Physical assessment completed. ASA score P 2 - A patient with mild systemic disease as per Luis E Luis MD. 11:35:15 Sedation plan: TIVA Medication:Propofol 11:36:24 Oxygen 6 l/min NC was administered by Azeem Hi RN; Per physician; Verbal order read back and verified. 11:36:28 Evangelista Bhatia MD present and monitoring patient for TIVA. 11:36:31 Refer to Anesthesia Notes for Sedation Medications was administered by Azeem Hi RN; Per physician; Verbal order read back and verified. 11:39:26 Procedure started. 11:39:40 ------Cardioversion------ 11:39:41 Quick combo pads placed on patients chest and back. 11:39:44 Defibrillator synced and charged to 275 Joules. 11:40:11 Shock delivered. 11:40:13 Patient cardioverted to sinus rhythm . 11:40:19 Procedure ended.(Physican Out) 11:40:39 Post Thoracic area:clean and dry 11:40:45 Post procedure rhythm: sinus rhythm 11:40:48 Post procedure instruction explained to patient.Patient verbalizes understanding. 11:41:33 Patient needs reinforcement of post procedure teaching. 11:41:34 Procedure and supply charges have been captured, reviewed, submitted and are correct. 11:42:28 Procedure Complication : No complications 11:49:05 Vital chart was stopped 11:49:11 Operative report dictated upon procedure completion. 11:49:12 See physician's report for complete and final results. 11:49:15 Report given to Pre/Post Procedure Room. 11:49:19 Patient transfered to Pre/Post Procedure Room with Stretcher. 11:49:21 Full Disclosure recording stopped 11:49:21 Procedure ended. 11:49:25 End room use (Document Last) Signature Audit [place] Stage Time Signature Unsigned Intra-Procedure 08/17/2019 Luis E Luis 11:54:45 AM [facility] [address] [id number]
[2019-08-17] MEDS ORDERED: BETAPACE 80 MG80 MG PO (10:09)
[2019-08-17] MEDS ORDERED: ELIQUIS5 MG PO (10:09)
[2019-08-17 10:28] VITALS: BP 134/93; Ht 190.5 cm; Wt 106.8 kg
[2019-08-17 10:44] LABS: BASOPHILS 0.1 % (0-2); EOSINOPHILS 2.9 % (0-7); HEMATOCRIT 34.6 % (42.0-54.0); HEMOGLOBIN 10.5 g/dL (13.5-17.5); IMMATURE GRANULOCYTES 0.3 % (0-5); LYMPHOCYTES 20.7 % (15-50); MCH 22.9 pg (26.0-34.0); MCHC 30.3 g/dL (31.0-37.0); MCV 75.5 fL (80.0-100.0); MEAN PLATELET VOLUME 9.3 fL (7.4-10.4); MONOCYTES 11.5 % (2-11); NEUTROPHILS 64.5 % (40-80); RBC 4.58 10x6/uL (4.20-6.10); RDW 16.2 % (11.5-14.5); WBC 7.6 10x3/uL (4.8-10.8)
[2019-08-17 10:47] LABS: PLATELET COUNT 517 10x3/uL (130-400)
[2019-08-17 10:58] LABS: CALC OSMOLALITY 289 mosm/kg (275-300); CALCIUM 8.6 mg/dL (8.5-10.1); CARBON DIOXIDE 27.4 mmol/L (21.0-32.0); CHLORIDE - SERUM 107 mmol/L (98-107); CREATININE - SERUM 0.9 mg/dL (0.6-1.3); GLUCOSE 135 mg/dL (74-106); POTASSIUM - SERUM 4.1 mmol/L (3.5-5.1); SODIUM 143 mmol/L (136-145); UREA NITROGEN 21 mg/dL (7-18); eGFR NON AFRICAN AMERICAN 87 mL/min (90-120)
[2019-08-17 11:04] LABS: INR 1.51 (0.85-1.17); PROTIME 17.6 SECONDS (11.6-15.0)
--- NOTE | 2019-08-17 12:04 | NUR ---
PT RECEIVED VIA STRETCHER FROM DIRECTOR CAMP POST SUCCESSFUL CARDIOVERSION. PT PLACED ON CARDIAC MONITORS, HR SB AT 60, BP 121/66, RR 14, SAT 97 ON ROOM AIR. IV PATENT INFUSING VIA ORDERS. PT DENIES CHEST PAIN OR DISCOMFORT. CALL LIGHT IN REACH
--- NOTE | 2019-08-17 12:35 | NUR ---
PT SITTING UP WATCHING TV. DENIES PAIN OR DISCOMFORT. HR NSR RATE 63. PT TOLERATING PO FOOD AND FLUIDS W/O NAUSEA. CALL LIGHT IN REACH, DENIES NEEDS
--- NOTE | 2019-08-17 12:45 | NUR ---
PT SITTING UP IN BED IN NO DISTRESS. HR 62 NSR, BP 116/59, SAT 98. PT DENIES PAIN OR DISCOMFORT. CALL LIGHT IN REACH, PT DENIES NEEDS
--- NOTE | 2019-08-17 12:55 | NUR ---
DISCHARGE INSTRUCTIONS REVIEWED W PT HE VERBALIZED UNDERSTANDING. IV REMOVED W CATH INTACT, MONITORS REMOVE AND PT UP TO DRESS FOR DISCHARGE. WILL WAIT ON DR ASH TO COME SEE HIM BEFORE LEAVING.
--- NOTE | 2019-08-17 13:20 | NUR ---
DR ASH AT , DISCUSSING PLAN OF CARE AND PROCEDURE RESULTS. 1225 PT AMBULATED TO PRIVATE VEHICLE W FRIEND WAITING. PT HAD ALL BELONGINGS AND DISCHARGE INSTRUCTIONS
--- NOTE | 2019-08-22 09:28 | OP ---
PATIENT NAME: MATY CARLOS MEDICAL RECORD: [id number] :44 LOCATION:[facility] ADMISSION DATE: SURGEON: GAMALIEL ASH MD DATE OF OPERATION: 08/17/2019 PROCEDURE: DC cardioversion. INDICATION: Atrial fibrillation. PROCEDURE IN DETAIL: IV conscious sedation was per anesthesia. He received 1 shock restoring sinus rhythm at 275 joules. OVERALL IMPRESSION: Successful DC cardioversion from atrial fibrillation to sinus rhythm. TRANSINT:[id number] Voice Confirmation ID: [id number] DOCUMENT ID: [id number] GAMALIEL SAH MD at 0928 CC: [id number] DICTATION DATE: 08/17/19 1216 FUNDING COORDINATOR: 08/17/19 1308 [facility] CLI 08/17/19 [id number] [place] [address]
== END 2019-08-17 13:25 | disposition home or self-care (01) ==
LOC: D.CATH 09:53
PROVIDERS: ATTEND Internal Medicine Interventional Cardiology
DX: I48.91 Unspecified atrial fibrillation (principal)

== ENCOUNTER 2019-12-06 12:00 | Outpatient (CLI) | payer MEDICARE, BC ==
[~2019-12-06] VITALS: Ht 190.5 cm; Wt 104.5 kg
[~2019-12-06 12:00] MED LIST changes: +BETAPACE 80 MG80 MG PO; +ELIQUIS5 MG PO
[2019-12-06 13:00] VITALS: BP 148/74; Ht 190.5 cm; Wt 104.5 kg
--- NOTE | 2019-12-06 16:01 | NUR ---
1515 IV REMOVED AND INSTRUCTIONS GIVEN TO PT.
== END 2019-12-06 15:30 | disposition home or self-care (01) ==
LOC: D.OPS 12:00
PROVIDERS: ATTEND Nurse Practitioner Family
DX: D64.9 Anemia, unspecified (principal)